=== PATIENT | male | born 1995 | race Caucasian/White ===

== ENCOUNTER 2019-12-31 14:04 | Emergency (ER) | payer OTHER ==
[~2019-12-31] VITALS: Ht 175.3 cm; Wt 82.1 kg
[2019-12-31 14:09] VITALS: BP 136/81
--- NOTE | 2019-12-31 14:14 | NUR ---
WHEELCHAIR ASSISTED TO BED 4
[2019-12-31] MEDS ORDERED: ONDANSETRON 4 MG/2 ML VIAL IVP STA (14:31)
--- NOTE | 2019-12-31 14:50 | NUR ---
24 YEAR OLD MALE COMPLAINS OF NAUSEA, VOMITTING, AND ABDOMINAL PAIN AFTER WAKING UP THIS MORNING. PT STATES HE WAS PARTYING LAST NIGHT AND DRANK 2 BOTTLES OF VODKA AND THAT HE NORMALLY DOES NOT DRINK. PT AOX4, BREATHING EVEN AND UNLABORED, SKIN WARM AND DRY. BED IN LOWEST POSITION, LOCKED, BED RIAL UPX1. PMH - DENIES ALLERGIES - NKA
[2019-12-31] MEDS ORDERED: FAMOTIDINE 20 MG TAB PO ONE (15:05)
[2019-12-31 15:13] LABS: BASOPHILS % (AUTO) 0.3 % (0.0-2.0); HEMATOCRIT 40.3 % (36-52); HEMOGLOBIN 13.5 g/dL (12.0-18.0); LYMPHOCYTES % (AUTO) 16.8 % (20.5-51.1); MEAN CORPUSCULAR HEMOGLOBIN 28 pg (27-31); MEAN CORPUSCULAR HGB CONC 34 g/dL (33-37); MEAN CORPUSCULAR VOLUME 83.8 fL (80-94); MONOCYTES # (AUTO) 0.2 K/uL (0.8-1.0); NEUTROPHILS # (AUTO) 9.8 K/uL (1.8-7.7); NEUTROPHILS % (AUTO) 80.9 % (42.2-75.2); PLATELET COUNT (AUTO) 434 K/uL (140-450); RED CELL DISTRIBUTION WIDTH 14.2 % (11.6-13.7); WHITE BLOOD COUNT (AUTO) 12.1 K/uL (4.8-10.8)
[2019-12-31 15:29] LABS: ALBUMIN 4.8 g/dL (3.4-5.0); ANION GAP 22.2 (8-16); CARBON DIOXIDE 20.6 mmol/L (21-32); CREATININE 0.7 mg/dL (0.6-1.3); POTASSIUM 3.8 mmol/L (3.5-5.1)
[2019-12-31 15:58] LABS: APPEARANCE,URINE CLEAR (CLEAR); BILIRUBIN,URINE NEGATIVE (NEGATIVE); BLOOD, URINE TRACE-I (NEGATIVE); COLOR,URINE YELLOW (YELLOW); LEUKOCYTE ESTERASE ,URINE NEGATIVE (NEGATIVE); NITRITE, URINE NEGATIVE (NEGATIVE); PH,URINE 6.5 (5.0-9.0); UGLUCOSE NEGATIVE (NEGATIVE)
--- NOTE | 2019-12-31 16:06 | NUR ---
IV discontinued, 2x2 gauze placed to IV site, bleeding controlled at this time
[2019-12-31 16:08] VITALS: BP 136/81
--- NOTE | 2019-12-31 16:08 | NUR ---
Patient discharged with v/s stable. Written and verbal after care instructions given and explained. Patient alert, oriented and verbalized understanding of instructions. Ambulatory with steady gait. All questions addressed prior to discharge. ID band removed. Patient advised to follow up with PMD. Rx of Pepcid 20mg given. Patient educated on indication of medication including possible reaction and side effects. Opportunity to ask questions provided and answered.
[2019-12-31 16:16] LABS: WBC,URINE 0-5 /HPF (0-5)
== END 2019-12-31 16:08 | disposition home or self-care (01) ==
LOC: MED 14:04
DX: K29.20 Alcoholic gastritis without bleeding (principal); R11.2 Nausea with vomiting, unspecified; F17.210 Nicotine dependence, cigarettes, uncomplicated; Z71.6 Tobacco abuse counseling
CPT/HCPCS: 36415; 80053; 81001; 82150; 83690; 85025; 96374; 99283; J2405